=== PATIENT | female | born 1985 | race Caucasian/White ===

== ENCOUNTER 2024-10-09 07:27 | Emergency (ER) | payer BC ==
[~2024-10-09] VITALS: Ht 167.6 cm; Wt 65.3 kg
[2024-10-09 07:37] VITALS: O2SAT 99
[2024-10-09] MEDS ORDERED: KETOROLAC 30MG/ML VIAL IM STA (07:54)
[2024-10-09 08:11] LABS: BASOPHILS % 0.2 % (0.0-2.0); DIFFERENTIAL COMMENT 0; EOSINOPHILS % 1.1 % (0.0-5.0); HEMATOCRIT. 33.4 % (36.0-48.0); HEMOGLOBIN. 10.5 g/dL (12.0-16.0); LYMPHOCYTES % 13.1 % (20.0-50.0); MEAN CORPUSCULAR HGB CONC 31.4 g/dL (31.0-37.0); MEAN CORPUSCULAR VOLUME 79.7 fL (81.0-99.0); MEAN PLATELET VOLUME 8.6 fl (7.4-10.4); MONOCYTES % 9.1 % (2.0-8.0); NEUTROPHILS % 76.5 % (40.0-76.0); PLATELET 270 x1000/uL (130-400); RED BLOOD CELL COUNT 4.19 mill/uL (4.2-5.4); RED CELL DISTRIBUTION WIDTH 15.7 % (11.6-14.6); WHITE BLOOD COUNT 9.4 x1000/uL (4.5-11.0)
[2024-10-09 08:16] LABS: CHLORIDE 107 mEq/L (98-107); POTASSIUM 3.6 mEq/L (3.5-5.1); SODIUM 138 mEq/L (136-145)
[2024-10-09 08:17] LABS: CALCIUM 8.9 mg/dL (8.7-10.4); CARBON DIOXIDE 24 mEq/L (21-32)
[2024-10-09 08:22] LABS: CREATININE 0.7 mg/dL (0.6-1.0); GLUCOSE 96 mg/dL (70-105); UREA NITROGEN BLOOD 10 mg/dL (9-23)
[2024-10-09 08:32] LABS: CLARITY URINE CLEAR (CLEAR); COLOR URINE YELLOW (YELLOW); GLUCOSE URINE NEGATIVE (NEGATIVE); KETONES URINE NEGATIVE (NEGATIVE); LEUKOCYTE ESTERASE URINE NEGATIVE (NEGATIVE); NITRITE URINE NEGATIVE (NEGATIVE); OCCULT BLOOD URINE 2+ (NEGATIVE); PROTEIN URINE TRACE (NEGATIVE); UROBILINOGEN URINE 0.2 E.U./dL (0.2-1.0)
[2024-10-09 09:13] LABS: MUCUS URINE TRACE /lpf (< = 2+); SQUAMOUS EPITHELIAL CELL URINE 3+ /lpf (RARE/1+)
[2024-10-09 09:14] LABS: BACTERIA URINE 1+
[2024-10-09] MEDS: KETOROLAC 30MG/ML VIAL IM NR (09:53)
[2024-10-09] MEDS ORDERED: IBUP-2029 MT (10:01)
[2024-10-09] MEDS ORDERED: CEPH500T MT (10:01)
[2024-10-09 10:27] VITALS: TEMP 36.89184; O2SAT 99
[2024-10-09 10:28] VITALS: BP 118/71; PULSE 68; RESP 16
== END 2024-10-09 10:25 | disposition home or self-care (01) ==
LOC: ER 07:27 → EDBD 07:27 → ER 10:25
DX: R10.31 Right lower quadrant pain (principal)
CPT/HCPCS: 80048; 81003; 81025; 83690; 85025; 85379; 36415; 71045; 76705; 96372; 99285; J1885; Z7610